=== PATIENT | female | born 1940 | race Caucasian/White ===

== ENCOUNTER 2019-06-08 15:57 | Emergency (ER) | payer MEDICARE, OTHER ==
[2019-06-08] MEDS: NS 1,000 ML IV SCH ×2 (17:29→19:37)
[2019-06-08] MEDS ORDERED: FAMOTIDINE INJ 20MG/2ML VIAL (S0028) IVP ONE (17:30)
[2019-06-08] MEDS ORDERED: NS 500 ML IV ONE (17:30)
[2019-06-08] MEDS ORDERED: ONDANSETRON 4MG/2ML VIAL (J2405) IV ONE (17:30)
[2019-06-08 17:41] LABS: BASO % 0.1 % (0.0-1.0); HEMATOCRIT 38.6 % (36.0-47.0); LYMPH # 0.8 10^3/uL (1.5-4.5); LYMPH % 7.7 % (24.0-44.0); MEAN CORPUSCULAR HEMOGLOBIN 30.8 pg (27.0-33.0); MEAN CORPUSCULAR HGB CONC 36.3 g/dl (32.0-36.5); MONO # 0.5 10^3/uL (0.0-0.8); NEUTROPHILS # 8.6 10^3/uL (1.8-7.7); PLATELET COUNT, AUTOMATED 256 10^3/uL (150-450); RED BLOOD COUNT 4.54 10^6/uL (4.00-5.40); WHITE BLOOD COUNT 9.9 10^3/uL (4.0-10.0)
[2019-06-08 18:08] LABS: ALBUMIN 3.7 GM/DL (3.2-5.2); ALT/SGPT 20 U/L (12-78); BILIRUBIN,DIRECT 0.4 MG/DL (0.0-0.2); BILIRUBIN,TOTAL 1.9 MG/DL (0.2-1.0); BLOOD UREA NITROGEN 16 MG/DL (7-18); CALCIUM LEVEL 9.2 MG/DL (8.8-10.2); CARBON DIOXIDE LEVEL 25 MEQ/L (21-32); CHLORIDE LEVEL 92 MEQ/L (98-107); CREATININE FOR GFR 0.81 MG/DL (0.55-1.30); GLOMERULAR FILTRATION RATE > 60.0 (>32); GLUCOSE, FASTING 119 MG/DL (70-100); LIPASE 92 U/L (73-393); POTASSIUM SERUM 4.3 MEQ/L (3.5-5.1); SODIUM LEVEL 127 MEQ/L (136-145); TOTAL PROTEIN 7.6 GM/DL (6.4-8.2)
[2019-06-08] MEDS ORDERED: ACETAMINOPHEN 325 MG TAB PO ONE (18:30)
[2019-06-08 20:00] VITALS: BP 144/64
[2019-06-08] MEDS ORDERED: MACR100C43 PO (20:15)
[2019-06-08] MEDS ORDERED: ZOFR4TAB16 PO (20:15)
--- NOTE | 2019-06-09 09:02 | REP ---
REASON: Abdominal pain. COMPARISON: None. The accompanying film of the chest shows the lung rose to be hyper-expanded. Calcified granulomas are suspected in the lung bases. There is no free subdiaphragmatic air density. The intestinal gas pattern is nonspecific. The organ silhouettes, insofar as delineated are within normal limits. IMPRESSION: No acute disease. Chronic changes as described above. Electronically Signed by Eduard Cowan DO 06/09/2019 10:03 A
== END 2019-06-08 20:24 | disposition home or self-care (01) ==
LOC: M ED 15:57
DX: N30.00 Acute cystitis without hematuria (principal); E87.1 Hypo-osmolality and hyponatremia; R11.2 Nausea with vomiting, unspecified; I51.9 Heart disease, unspecified; I10 Essential (primary) hypertension
CPT/HCPCS: 74021; 80048; 80076; 81001; 83690; 85025; 87086; 96374; 96375; 99284; J2405